=== PATIENT | female | born 1945 | race Caucasian/White ===

== ENCOUNTER 2022-06-10 08:09 | Emergency (ER) | payer MEDICARE, SELFPAY ==
[2022-06-10 08:11] VITALS: BP 151/70; PULSE 65; RESP 17; TEMP 36.7; O2SAT 93; BMI 38.0
[2022-06-10 08:13] VITALS: BP 151/70; PULSE 65; RESP 17; TEMP 36.7; O2SAT 93
--- NOTE | 2022-06-10 08:29 | CT_ITS ---
STUDY: CT ABDOMEN AND PELVIS WITHOUT COPATIENT REPORTS RIGHT FLANK PAIN THAT IS RADIATING INTO ABD THAT STARTED AT 0300 THIS AM PT REPORTS FREQUENCY WITH URINATION. APPENDECTOMY, GASTRIC BYPASS, IRVING FILTERNTRAST REASON FOR EXAM: Female, 77 years old. right flank pain RADIATION DOSAGE (If Supplied By Facility): CTDIvol = ( 21.98 ) mGy, DLP = ( 1224.51 ) mGycm TECHNIQUE: Transaxial images were obtained from the dome of the diaphragm to the symphysis pubis without oral contrast, and without intravenous contrast. Sagittal and coronal images were reconstructed. Individualized dose optimization techniques were used for this CT. COMPARISON: None. FINDINGS: The visualized lung bases are unremarkable. Small calcifications of the liver present. No intrahepatic biliary duct dilatation or liver mass. Normal gallbladder and extrahepatic biliary system. There are multiple benign calcified granulomata of the spleen. Normal pancreas. Normal bilateral adrenal glands. Normal right kidney. Normal left kidney. No hydronephrosis or renal masses. No visualized radiopaque stones. Gastric bypass noted. Normal small intestine. Normal colon. No bowel dilatation or obstruction. No free air or free fluid. There is non-visualization of the appendix. There is diffuse atherosclerotic calcification of the abdominal aorta, without a demonstrated aneurysm. There is an IVC filter in place. Normal retroperitoneum. Normal urinary bladder. Unremarkable uterus and adnexa. Small calcification seen in the uterus. There is a small umbilical hernia containing fat. There are diffuse degenerative changes of the visualized lumbar spine. CT/Abdomen/Pelvis without Cont IMPRESSION: 1. No acute process of the abdomen and pelvis. 2. No radiopaque stones or hydronephrosis Electronically Signed: Kenan Hargrove MD at 9:28 EDT ,
--- NOTE | 2022-06-10 08:31 | EDS_ITS ---
HPI History of Present Illness Chief Complaint: Flank Pain Informant: patient Narrative Narrative: Patient presents with right flank pain that woke her up at 345 this morning. She had been completely asymptomatic prior to this. The pain starts in her right flank and then radiates to the right groin. She is urinating frequently and urination will sometimes worsen the flank pain but its not dysuria. No change in odor or color of the urine. No fevers or chills. When the pain is bad she has nausea but not at other times. She has never had this before. She has no history of kidney stones. She has not been syncopal or presyncopal or lightheaded. No distal numbness tingling or weakness. Nothing really makes it better or worse. Past medical history: High blood pressure, hypothyroidism, depression, restless leg Medications include unknown blood pressure pill, Requip, thyroid medicine, possible citalopram, trazodone at night No known drug allergies Surgeries including gastric bypass in 2009, prior appendectomy Non-smoker lives with PFSH PFS Medical History no medical history Home Medications hydrocodone-acetaminophen 5-325mg 5mg-325mg 1 tab PO Q6H PRN pain 3 days #10 tabs 06/10/22 [Rx Last Taken Unknown] ondansetron 4 mg disintegrating tablet 4 mg PO Q8H PRN nausea and vomiting #10 tabs 06/10/22 [Rx Last Taken Unknown] Allergy/AdvReac Type Severity Reaction Status Date / Time No Known Allergies Allergy Verified 06/10/22 08:09 Social History Smoking Status: Never smoker [facility] ED Constitutional Constitutional ED: Denies chills or fever(s) ENT ENT ED: Denies rhinorrhea or sore throat Cardiovascular Cardiovascular: Denies chest pain, palpitations or racing heartbeat Respiratory/Chest Respiratory/Chest: Denies cough or dyspnea Gastrointestinal Gastrointestinal: Reports abdominal pain and nausea; Denies constipation, diarrhea, melena or vomiting Genitourinary Genitourinary ED: Reports urinary frequency Musculoskeletal Musculoskeletal: Reports back pain Integumentary Denies rash Neurologic Neurologic: Denies paresthesias or weakness Endocrine Endocrinology: Reports polyuria; Denies polydipsia Hematologic/Lymphatic Hematologic/Lymphatic: Denies easy bleeding or easy bruising Allergic/Immunologic Allergic/Immunologic ED: Denies urticaria EXAM Physical Exam Const Vital Signs: 06/10/22 08:11 06/10/22 08:13 Temperature 98.1 F 98.1 F Temperature Source Temporal Temporal Pulse Rate 65 65 Respiratory Rate 17 17 Blood Pressure 151/70 H 151/70 H Blood Pressure Mean 97 97 Pulse Ox 93 93 Oxygen Delivery Method Room Air Room Air Positive well nourished and well developed General Appearance ED: well developed and NAD; Negative for cyanotic or diaphoretic HEENT Reports moist mucous membranes Eyes General Eye ED: Negative for scleral icterus Neck no JVD Resp normal respiratory effort and clear to auscultation bilaterally Cardio regular rate and regular rhythm GI normal to inspection, nondistended, normoactive bowel sounds, non-tender, non- distended and no masses GI Narrative: Patient has pain that radiates to the right lower quadrant but she states is not tender to press. It does not change the pain pressing. She does have some right flank and CVA tenderness though. Palpation: soft Back/Spine Negative for no CVA tenderness General Back: CVA tenderness Extremity General Extremety ED: Negative for tenderness Neuro Sensorium / Orientation: alert Skin no rashes or lesions noted Skin Narrative: I see no vesicles or erythema in the area of pain. MDM MDM MDM Narrative Medical decision making narrative: Patient's CT scan does not show any acute process. There is signs of a prior IVC filter. Urine is clean. No sign of blood and no sign of infection. CBC shows normal white count hemoglobin and platelets. Electrolytes are normal. BUN to creatinine ratio is slightly high but I do not think this is contributing to her pain. I discussed this with the patient. I find out she is visiting friends here. She has been sleeping in a bed for the last 3 or so days it is very uncomfortable. She now does state that the pain is worsened with motion when initially seen thought it was not. She states she has been trying twisting and that does seem to bother it. This makes me think that this may be more musculoskeletal pain considering her negative work-up. I will still get her meds for pain. I explained that is certainly possible that there is a nonvisualized stone. We discussed reasons to return that would include incr easing pain, fevers, large amount of blood in the urine, numbness weakness or other concerns. Lab Data Attestation: I reviewed the patient's lab results. Labs: Laboratory Results - last 24 hr 06/10/22 06/10/22 06/10/22 08:30 08:40 08:40 WBC 5.5 RBC 4.22 Hgb 12.0 Hct 38.0 MCV 90.0 MCH 28.4 MCHC 31.6 L RDW Std Deviation 46.7 H RDW Coeff of Michelle 14.3 Plt Count 163 MPV 10.4 Immature Gran % (Auto) 0.400 Neut % (Auto) 60.6 Lymph % (Auto) 25.5 [place] % (Auto) 10.0 Eos % (Auto) 3.1 Baso % (Auto) 0.4 Absolute Neuts (auto) 3.3 Absolute Lymphs (auto) 1.40 Nucleated RBC % 0 Sodium 141 Potassium 3.9 Chloride 107 Carbon Dioxide 30.0 Anion Gap 4 L BUN 19 H Creatinine 0.55 Estim Creat Clear Calc 39.59 Est GFR (MDRD) Af Amer 138 Est GFR (MDRD) Non-Af 114 BUN/Creatinine Ratio 34.5 H Glucose 98 Calcium 8.7 Urine Color Yellow Urine Clarity Clear Urine pH 7.0 Ur Specific [place] 1.010 Urine Protein Negative Urine Glucose (UA) Normal Urine Ketones Negative Urine Occult Blood Negative Urine Nitrite Negative Urine Bilirubin Negative Urine Urobilinogen Normal Ur Leukocyte Esterase Negative Urine RBC 0 SEEN Urine WBC 0 SEEN Ur Squamous Epith Cells 0-5 SEEN Urine Bacteria 0 SEEN Urine Mucus 0 SEEN Radiography Diagnostic Testing: Clinical Impression(s) from Imaging Studies Abdomen/Pelvis CT 06/10/22 08:29 IMPRESSION: 1. No acute process of the abdomen and pelvis. 2. No radiopaque stones or hydronephrosis Electronically Signed: Kenan Hargrove MD at 9:28 EDT Reading Location ID and State: [facility] / [place] , Service support , CT scan looked at by me and read by radiology shows no sign of hydronephrosis, perinephric stranding or radiopaque stones. No acute process is seen. Discharge Plan Triage Chief Complaint: Flank Pain ED Provider: Dav Sawant Dx/Rx/DC Orders Clinical Impression: Acute right flank pain Instructions: ED Flank Pain, Uncertain Cause Prescriptions: New hydrocodone-acetaminophen 5-325 mg tablet 1 tab PO Q6H PRN (Reason: pain) 3 Days Qty: 10 0RF ondansetron 4 mg tablet,disintegrating 4 mg PO Q8H PRN (Reason: nausea and vomiting) Qty: 10 0RF Primary Care Provider: Care Physician,No Primary Referrals: Alexis Hood MD [Med Staff - Principal Java Software Engineer] - 3-5 Days if not improving Town Doctor,Out of [Non-Staff] - Disposition Disposition: Home, Self Care
[2022-06-10 08:38] LABS: Bacteria 0 SEEN /hpf (None Seen); Mucous, Urine 0 SEEN /hpf (<or=2+); Red Blood Cells-Urine 0 SEEN /hpf (0-5); White Blood Cells 0 SEEN /hpf (0-5)
[2022-06-10 08:44] LABS: Color, Urine Yellow (Yellow); Glucose, Dipstick Normal (Normal); Ketone-Dipstick Negative (Negative); Leukocyte Esterase-Dipstick Negative /ul (Negative); Nitrite-Dipstick Negative (Negative); Occult Blood-Urine Negative /ul (Negative); Protein-Dipstick Negative (Negative); Urine Bilirubin Dipstick Negative (Negative); Urine Clarity Clear (Clear); Urine Urobilinogen Normal (Normal)
[2022-06-10] MEDS: Ondansetron 4 MG/2 ML Vial IV (08:47)
[2022-06-10] MEDS: Morphine 4 MG/ML Syringe IV ×2 (08:47→09:22)
[2022-06-10 08:53] LABS: Squamous Epithelial Cells - UA 0-5 SEEN /hpf (5-10)
[2022-06-10 08:53] LABS: Absolute Neutrophil Count 3.3 X10^3/uL (2.0-7.7); Basophil# 0.02 X10^3/uL; Basophil% 0.4 % (0-1); Eosinophil# 0.17 X10^3/uL; Eosinophils% 3.1 % (0-5); Lymphocyte % 25.5 % (19-41); Mean Corp Hgb Conc 31.6 g/dL (32-36); Mean Corpuscular Hgb 28.4 pg (27.0-32.0); Mean Platelet Vol. 10.4 fl (6.2-12.0); Monocyte# 0.55 X10^3/uL; NRBC Flagged by Analyzer 0 % (0-5); Neutrophil # 3.32 X10^3/uL (2.7-7.7); Neutrophil % 60.6 % (47-70); Platelet Count 163 K/mm3 (150-450); RBC Distribution Width CV 14.3 % (11.6-14.6); RBC Distribution Width SD 46.7 fl (35.1-43.9); Red Blood Count 4.22 M/mm3 (4.2-5.4); White Blood Count 5.5 K/mm3 (4.4-11.0)
[2022-06-10 09:02] LABS: Anion Gap 4 (5-15); BUN 19 mg/dL (7-18); BUN/Creat Ratio 34.5 RATIO (10-20); Calcium,Total 8.7 mg/dL (8.5-10.1); Chloride 107 mmol/L (98-107); Creatinine, Serum 0.55 mg/dL (0.55-1.02); EST Glomerular Filtration Rate 114 mL/min (>60); Est Glom Filt Rate - Afr Amer 138 mL/min (>60); Estimated Creatinine Clearance 39.59 ml/min; Glucose 98 mg/dL (74-106); Potassium 3.9 mmol/L (3.5-5.1); Sodium Level 141 mmol/L (136-145)
== END 2022-06-10 10:16 | disposition home or self-care (01) ==
PROVIDERS: Emergency Provider Emergency Medicine; Visit Provider Emergency Medicine
DX: R10.9 Unspecified abdominal pain (principal); R11.0 Nausea; I10 Essential (primary) hypertension; E03.9 Hypothyroidism, unspecified; F32.A Depression, unspecified; G25.81 Restless legs syndrome; R35.0 Frequency of micturition
CPT/HCPCS: 74176; 80048; 81001; 85025; 96374; 96375; 96376; 99283; J7040; A4216; J2405